=== PATIENT | female | born 1945 | race Caucasian/White ===

== ENCOUNTER → 2017-02-23 | Outpatient (CLI) | payer MEDICARE, OTHER ==
[~2017-02-23] MED LIST: CARDIZEM CD 24240 MG PO; D3-5050000 IU PO; PROTONIX 40MG T40 MG PO; XARELTO20 MG PO
== END ==
LOC: COL.RAD 09:59
DX: N28.1 Cyst of kidney, acquired (principal); N28.89 Other specified disorders of kidney and ureter; N39.3 Stress incontinence (female) (male)
CPT/HCPCS: Q9967

== ENCOUNTER → 2017-03-12 | Outpatient (CLI) | payer MEDICARE, OTHER | LOC: COL.RAD 11:15 | DX: R31.29 Other microscopic hematuria (principal); N28.1 Cyst of kidney, acquired; I72.2 Aneurysm of renal artery ==

== ENCOUNTER 2017-03-29 09:02 | Day surgery (SDC) | payer MEDICARE, OTHER ==
[~2017-03-29] VITALS: Ht 172.7 cm; Wt 88.6 kg
[2017-03-29] VITALS (10 sets, daily range): BP systolic 123–168; BP diastolic 75–668; PULSE 60–82; TEMP 97.9
[~2017-03-29 09:02] MED LIST changes: -D3-5050000 IU PO
[2017-03-29] MEDS ORDERED: D3-5050000 IU PO (09:32)
[2017-03-29 09:36] LABS: HEMATOCRIT 46.1 % (37.0-47.0); HEMOGLOBIN 15.1 g/dl (12.5-16.0); MEAN CELL VOLUME 86 fl (80.0-100.0); MEAN CORPUSCULAR HEMOGLOBIN 28 pg (27.0-31.0); MEAN CORPUSCULAR HGB CONC 33 g/dl (33.0-37.0); MEAN PLATELET VOLUME 9.8 fl (7.4-10.4); PLATELET COUNT 255 K/mm3 (130-400); RED BLOOD COUNT 5.38 M/mm3 (4.10-5.30); REDCELL DISTRIBUTION WIDTH-CV 14.4 % (11.5-14.5); WHITE BLOOD COUNT 7.3 K/mm3 (4.8-10.8)
[2017-03-29 09:52] LABS: CREATININE, serum 0.81 mg/dL (0.52-1.25)
[2017-03-29 09:54] LABS: PROTHROMBIN TIME 11.4 SECONDS (9.7-12.8)
== END 2017-03-29 16:03 | disposition home or self-care (01) ==
LOC: COL.CAR 09:02
PROVIDERS: Radiology Diagnostic Radiology
DX: I72.2 Aneurysm of renal artery (principal); I82.409 Acute embolism and thrombosis of unspecified deep veins of unspecified lower extremity; N28.1 Cyst of kidney, acquired; K21.9 Gastro-esophageal reflux disease without esophagitis; I10 Essential (primary) hypertension; M79.89 Other specified soft tissue disorders; I26.99 Other pulmonary embolism without acute cor pulmonale; R31.9 Hematuria, unspecified; Z86.73 Personal history of transient ischemic attack (TIA), and cerebral infarction without residual deficits; R06.02 Shortness of breath; Z79.01 Long term (current) use of anticoagulants
CPT/HCPCS: C1760; C1769; C1887; C1894; J1200; J2250; J2400; J2930; J3010; Q9967

== ENCOUNTER 2022-05-23 12:28 | Emergency (ER) | payer MEDICARE, OTHER ==
[~2022-05-23] VITALS: Ht 172.7 cm; Wt 84.5 kg
[~2022-05-23 12:28] MED LIST changes: +D3-5050000 IU PO
[2022-05-23 12:38] VITALS: TEMP 98.5
[2022-05-23 12:55] LABS: BASO % 0.5 % (0.0-2.0); EOS # 0.2 K/mm3 (0.0-0.7); GRAN # 5.4 K/mm3 (1.4-6.5); GRAN % 61.4 % (42.2-75.2); HEMATOCRIT 43.1 % (37.0-47.0); HEMOGLOBIN 14.2 g/dl (12.5-16.0); LYMPH # 2.3 K/mm3 (1.2-3.4); LYMPH % 26.5 % (20.0-51.0); MEAN CELL VOLUME 85 fl (80.0-100.0); MEAN CORPUSCULAR HEMOGLOBIN 28 pg (27-31); MEAN CORPUSCULAR HGB CONC 33 g/dl (33.0-37.0); MEAN PLATELET VOLUME 10.2 fl (7.4-10.4); MONO # 0.8 K/mm3 (0.1-0.6); MONO % 9.4 % (1.7-9.3); PLATELET COUNT 254 K/mm3 (130-400); RED BLOOD COUNT 5.06 M/mm3 (4.10-5.30); REDCELL DISTRIBUTION WIDTH-CV 14.8 % (11.5-14.5)
[2022-05-23 13:14] LABS: ALBUMIN 4.3 gm/dL (3.4-4.8); BILIRUBIN,TOTAL 0.6 mg/dL (0.2-1.2); CALCIUM 9.6 mg/dL (8.4-10.2); CREATININE, serum 0.86 mg/dL (0.57-1.11); POTASSIUM 4.1 mmol/L (3.5-4.5); TOTAL PROTEIN 7.1 gm/dL (6.2-8.1)
[2022-05-23 13:21] LABS: TROPONIN-I 0.016 ng/mL (0.00-0.033)
[2022-05-23 15:41] VITALS: BP 149/74; PULSE 62
== END 2022-05-23 15:41 | disposition home or self-care (01) ==
LOC: COL.ER 12:28
PROVIDERS: Family Medicine
DX: R07.9 Chest pain, unspecified (principal); I48.91 Unspecified atrial fibrillation; Z79.01 Long term (current) use of anticoagulants